=== PATIENT | female | born 1940 | race Caucasian/White ===

== ENCOUNTER → 2020-06-26 | Outpatient (CLI) | payer MEDICARE, OTHER ==
--- NOTE | 2020-06-27 06:41 | REP ---
INDICATION: SPINAL STENOSIS L REGION. Repeat dictation. Preliminary report is provided at the time of the exam by asiya LEE. COMPARISON: Comparison lumbar spine MRI study October 16, 2015.. TECHNIQUE: Sagittal and axial T1 and T2-weighted scans are acquired in the usual fashion with and without fat saturation. Sequences include spin echo, turbo spin-echo, and STIR imaging sequences. FINDINGS: There is straightening of the normal lumbar lordosis. Lumbar vertebral body heights are preserved. Alignment is otherwise normal. No extra vertebral abnormality is observed. There is diffuse degenerative spondylosis. The tip of the conus medullaris is normal in position and appearance at L1. Axial and sagittal images at the L1-2 disc level show no evidence of disc protrusion, spinal stenosis, or foraminal compromise. At L2-L3, there is degenerative disc narrowing and mild diffuse disc bulging. This indents the ventral margin of the thecal sac. No spinal stenosis is seen. There is minimal facet and ligamentum flavum hypertrophy. No foraminal stenosis is seen. At the L 3 4 disc level, there is moderate anterior discogenic spurring. Diffuse disc bulging is present including bilateral lateral disc bulging. No foraminal stenosis is seen. Central canal is borderline. At L4-5, there is moderate central canal stenosis. This is due to combination of a moderate size diffuse broad-based disc bulge or protrusion with rather marked thickening of the ligamentum flavum bilaterally and mild facet hypertrophy. Developmentally short pedicles also play a role. The disc bulging is more pronounced than on the 2016 study and the ligamentum flavum hypertrophy has progressed. The spinal stenosis is significantly more pronounced at L4-5 than it was in 2016. There is mild facet joint fluid. The midline AP dimension of the thecal sac at L4-5 is 4.7 mm. There is bilateral neural foraminal narrowing due to disc bulging and facet hypertrophy. At L5-S1, there is diffuse disc bulging and osteophytic ridging indenting the ventral margin of the thecal sac slightly. No focal disc protrusion is seen. There is left-sided lateral recess narrowing at L5 mild in degree. There is right-sided neural foraminal narrowing due to facet hypertrophy and discogenic spurring. These findings are slightly more prominent than on the prior study. IMPRESSION: Degenerative spondylosis changes. The dominant abnormality is at L4-5 where there is moderate central canal stenosis, more pronounced than on the 2016 prior study. <Electronically signed by Phillip Byrd > 06/27/20 0637
== END ==
LOC: M RAD 15:32
PROVIDERS: ATTEND Physician Assistant
DX: M48.061 Spinal stenosis, lumbar region without neurogenic claudication (principal)

== ENCOUNTER → 2020-08-18 | Outpatient (CLI) | payer OTHER ==
[2020-08-18 10:46] LABS: PLATELET COUNT, AUTOMATED 239 10^3/uL (150-450)
[2020-08-18 11:02] LABS: COLLAGEN EPINEPHRINE 135 SECONDS (74-162)
[2020-08-18 11:29] LABS: INR 0.93; PROTHROMBIN TIME 12.7 SECONDS (12.5-14.3)
== END ==
LOC: M LAB 10:11
PROVIDERS: ATTEND Physical Medicine & Rehabilitation
DX: M48.061 Spinal stenosis, lumbar region without neurogenic claudication (principal)